=== PATIENT | male | born 1995 | race Caucasian/White ===

== ENCOUNTER 2018-07-08 13:46 | Outpatient (REF) | payer MEDICAID, SELFPAY ==
[2018-07-11 09:50] LABS: HIV-1/2 Ag & Ab Screen Negative (NEGAT)
[2018-07-11 11:51] LABS: Syphilis Serology (RPR) Negative (Negative)
[2018-07-11 13:33] LABS: Chlamydia Result Negative; GC Result Negative; Specimen Description URINE
== END 2018-07-08 14:06 ==
LOC: NCHCN 13:46
PROVIDERS: PCP Physician Assistant Medical; Visit Provider Physician Assistant Medical
DX: Z11.4 Encounter for screening for human immunodeficiency virus [HIV] (principal); Z11.3 Encounter for screening for infections with a predominantly sexual mode of transmission
CPT/HCPCS: 87389; 87491; 87591; 86592